=== PATIENT | male | born 1945 | race Caucasian/White ===

== ENCOUNTER 2017-03-05 02:09 | Inpatient (IN) | payer MEDICARE ==
[~2017-03-05] VITALS: Ht 160 cm; Wt 68.0 kg
[2017-03-05] VITALS (16 sets, daily range): BP systolic 71–101; BP diastolic 38–52; Ht 160 cm; Wt 68.0 kg
[2017-03-05 02:49] LABS: BASOPHIL % 0.8 % (0-2)
[2017-03-05 02:51] LABS: RED CELL DISTRIBUTION WIDTH 25.5 % (11.5-14.5)
[2017-03-05 02:52] LABS: PLATELET COUNT 92 x10^3mcL (130-400)
[2017-03-05 03:04] LABS: BILIRUBIN TOTAL 0.9 mg/dL (0.20-1.00); CALCIUM 8.8 mg/dL (8.5-10.1); CARBON DIOXIDE 20.1 mmol/L (21-32)
[2017-03-05 03:05] LABS: CK-MB 14.1 ng/mL (0-3.6)
[2017-03-05 03:07] LABS: ALBUMIN 1.2 g/dL (3.4-5.0); CREATININE SERUM 8.5 mg/dL (0.7-1.3); TOTAL PROTEIN, SERUM 3.4 g/dL (6.4-8.2)
[2017-03-05 04:29] LABS: microscopic required? YES; urine erythrocyte 2+ (NEGATIVE)
[2017-03-05 05:40] LABS: T3 TOTAL 0.18 ng/mL
[2017-03-05 05:42] LABS: FREE T4 0.37 ng/dL (0.76-1.46)
[2017-03-05 05:43] LABS: FREE THYROXINE INDEX 0.2 ug/dL (1.4-4.5); T4(THYROXINE) 0.6 ug/dL (4.7-13.3)
[2017-03-05 05:44] LABS: CHOLESTEROL/HDL RATIO 10.7
[2017-03-05 07:57] LABS: IRON 51 ug/dL (65-170); TOTAL IRON BINDING CAPACITY 94 ug/dL (250-450)
[2017-03-05 08:52] LABS: RED BLOOD CELLS 3.85 M/mm3 (4.52-5.90)
[2017-03-05] MEDS ORDERED: CIPRO250 MG PO (14:07)
[2017-03-05] MEDS ORDERED: CEPHALEXIN250 MG PO (14:08)
[2017-03-05] MEDS ORDERED: APAP/HYDROCODON1 T13 PO (14:09)
[2017-03-05] MEDS ORDERED: TESSALON PERLE100 MG PO (14:09)
[2017-03-05] MEDS ORDERED: ALLOPURINOL100 MG PO (14:09)
[2017-03-05] MEDS ORDERED: ZOF4 PO (14:10)
[2017-03-05] MEDS ORDERED: COLCHICINE0.6 M1 PO (14:11)
[2017-03-05] MEDS ORDERED: TRAMADOL HCL50 MG PO (14:13)
[2017-03-05] MEDS ORDERED: GABAPENTIN100 M2 PO (14:14)
[2017-03-05] MEDS ORDERED: LIDOCAINE AND P1 CRE TP (14:15)
[2017-03-05] MEDS ORDERED: ALPRAZOLAM0.25 MG PO (14:15)
[2017-03-05] MEDS ORDERED: DIFLUCAN200 MG PO (14:16)
[2017-03-05] MEDS ORDERED: OXANDRIN PO (14:16)
[2017-03-05] MEDS ORDERED: LYRICA50 M1 PO (14:17)
[2017-03-05] MEDS ORDERED: PROTONIX40 MG PO (14:18)
[2017-03-05] MEDS ORDERED: PROA PO (14:18)
[2017-03-05] MEDS ORDERED: VITAMIN D50000 I4 PO (14:18)
[2017-03-05] MEDS ORDERED: LACTULOSE10 GM/152 PO (14:19)
[2017-03-05 17:46] LABS: CALCIUM 8.1 mg/dL (8.5-10.1); CARBON DIOXIDE 22.7 mmol/L (21-32)
[2017-03-05 18:02] LABS: CREATININE SERUM 7.9 mg/dL (0.7-1.3)
[2017-03-06 01:10] VITALS: BP 99/50
== END 2017-03-06 02:40 | disposition expired | DRG 208 ==
LOC: ED 02:09 → IC 03:28
PROVIDERS: Emergency Medicine; ADMIT Family Medicine
PROC: 5A1935Z Respiratory Ventilation, Less than 24 Consecutive Hours (ICD-10-PCS; principal; 2017-03-05)
PROC: 0BH17EZ Insertion of Endotracheal Airway into Trachea, Via Natural or Artificial Opening (ICD-10-PCS; 2017-03-05)
PROC: 5A12012 Performance of Cardiac Output, Single, Manual (ICD-10-PCS; 2017-03-05)
PROC: 30233K1 Transfusion of Nonautologous Frozen Plasma into Peripheral Vein, Percutaneous Approach (ICD-10-PCS; 2017-03-05)
DX: J96.01 Acute respiratory failure with hypoxia (principal); N18.6 End stage renal disease; K72.01 Acute and subacute hepatic failure with coma; N17.0 Acute kidney failure with tubular necrosis; E43 Unspecified severe protein-calorie malnutrition; I50.43 Acute on chronic combined systolic (congestive) and diastolic (congestive) heart failure; I13.2 Hypertensive heart and chronic kidney disease with heart failure and with stage 5 chronic kidney disease, or end stage renal disease; N39.0 Urinary tract infection, site not specified; E87.1 Hypo-osmolality and hyponatremia; E11.65 Type 2 diabetes mellitus with hyperglycemia; E11.51 Type 2 diabetes mellitus with diabetic peripheral angiopathy without gangrene; E87.5 Hyperkalemia; E03.9 Hypothyroidism, unspecified; I25.10 Atherosclerotic heart disease of native coronary artery without angina pectoris; D64.9 Anemia, unspecified; Z68.26 Body mass index [BMI] 26.0-26.9, adult; Z99.2 Dependence on renal dialysis; Z89.422 Acquired absence of other left toe(s); Z95.1 Presence of aortocoronary bypass graft; Z66 Do not resuscitate; Z51.5 Encounter for palliative care
CPT/HCPCS: 36600; 82962; 83880; 84439; A4628; C9113; J0171; J0282; J0696; J1815; J2270; J2370; J2543; J3010; J3430; J3490; J7030; J7050; P9059; Q0092; Q0163